=== PATIENT | male | born 1985 ===

== ENCOUNTER 2019-09-07 21:54 | Emergency (ER) | payer SELFPAY ==
[~2019-09-07] VITALS: Ht 188 cm; Wt 110.0 kg
[2019-09-07 21:56] VITALS: BP 145/86
[2019-09-07] MEDS ORDERED: NEOSPORIN OINT. PKT 1 PACKET ONE (22:06)
== END 2019-09-07 22:32 | disposition left against medical advice (07) ==
LOC: ED 21:55
DX: M79.641 Pain in right hand (principal); Z53.21 Procedure and treatment not carried out due to patient leaving prior to being seen by health care provider